=== PATIENT | male | born 1955 | race Caucasian/White ===

== ENCOUNTER 2018-05-15 17:33 | Emergency (ER) | payer OTHER ==
[2018-05-15] MEDS ORDERED: diphenhydrAMINE 50 MG/ML VIAL ONE (18:09)
[2018-05-15] MEDS ORDERED: Metoclopramide HCl 10 MG/2 ML VIAL ONE (18:09)
[2018-05-15] MEDS ORDERED: Acetaminophen 325 MG TAB ONE (18:09)
[2018-05-15] MEDS ORDERED: Ketorolac Tromethamine 30 MG/ML VIAL ONE (18:52)
--- NOTE | 2018-05-15 19:34 | CT ---
CT BRAIN NONCONTRAST: 05/15/18 HISTORY: 62-year-old male with headache. FINDINGS: There is no midline shift or any other mass effect. There is no evidence of acute intracranial hemor rhage, large cortical infarct, obstructive hydrocephalus, or extraaxial fluid collection. The calvar ium is intact. The left globe is shrunken and severely, coarsely calcified. The sphenoid, ethmoid, an d frontal sinuses, and the upper halves of the bilateral maxillary sinuses, are grossly clear. IMPRESSION: 1. No acute intracranial findings. 2. Left phthisis bulbi. lubna graves POS: CARLOS ENRIQUE
== END 2018-05-15 20:32 | disposition home or self-care (01) ==
LOC: SCSER 17:33
DX: R51 Headache (principal); E11.9 Type 2 diabetes mellitus without complications; E78.5 Hyperlipidemia, unspecified; Z79.4 Long term (current) use of insulin
CPT/HCPCS: 70450; 96365; 96375; J1200; J1885; J2765